=== PATIENT | female | born 1995 | race Caucasian/White ===

== ENCOUNTER 2017-04-06 02:40 | Inpatient (IN) | payer BC ==
[2017-04-06] MEDS ORDERED: Lidocaine 1% 50 ML MDV INJECT PRN (03:43)
[2017-04-06] MEDS ORDERED: Aluminum Hydroxide/Magnesium Hydroxide/Simethicone Susp 30 ML Cup PO PRN (03:43)
[2017-04-06] MEDS ORDERED: Ondansetron 4 MG/2 ML SDV IVPUSH PRN (03:43)
[2017-04-06] MEDS ORDERED: Nalbuphine 20 MG/1 ML Amp IVPUSH PRN (03:43)
[2017-04-06] MEDS ORDERED: Oxytocin/Lactated Ringers 10 UNIT/1,000 ML BAG IV SCH ×2 (03:45→09:15)
[2017-04-06] MEDS ORDERED: Ampicillin 2 GM in Sodium Chloride 0.9% 100 ML IV ONE (04:00)
[2017-04-06] MEDS ORDERED: Sodium Chloride 0.9% 200 ML ONE (04:06)
[2017-04-06] MEDS: Lactated Ringers 1,000 ML IV SCH ×4 (04:24→12:17)
[2017-04-06] MEDS: Ampicillin 1 GM in Sodium Chloride 0.9% 100 ML IV SCH ×2 (07:49→11:53)
--- NOTE | 2017-04-06 11:27 | HP ---
DATE OF ADMISSION: 04/06/2017 ADMISSION DIAGNOSIS: 35 and 5/7th-week intrauterine , spontaneous rupture of membranes, early labor. HISTORY OF PRESENT ILLNESS: The patient is a 22-year-old, 4, para 2-0-1-2, white female, who was seen 2 days ago in clinic for a transfer visit. She was noted at that time to be 35 and 3/7th weeks gestational age with an MERVIN of 05/06/2017, as based upon her last menstrual period and an early ultrasound done in [place]. This places her at 35 and 5/7th weeks today upon admission. She reports spontaneous rupture of membranes, early in the a.m. of 04/06/2017. The amniotic fluid is clear. She has started in Labor and is fabien mildly at this time. The patient has gross rupture of membranes on evaluation. heart tones are reassuring. The patient was admitted for labor. 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 Last menstrual period was relatively certain and gives an MERVIN of 05/06/2017. This is supported by an ultrasound done in [place]. This is per patient's history as the patient has not transferred records to our clinic at this time. Her previous pregnancies include the followin. Female infant born on 11/17/2013, at 40 weeks' gestational age after 9 hours of labor - 7 pounds 14 ounces - normal spontaneous vaginal delivery - epidural - [place] - child's name is Frida. 2. Female infant born 11/03/2015, at 40 weeks' gestational age, after 16 hours of labor. 7 pounds 15 ounces - female - normal spontaneous vaginal delivery - epidural use - [place] - child's name is Regi. 3. Miscarriage on 05/24/2016, at 9 weeks gestational age. The patient is desiring epidural in labor and delivery. She has somewhat of a conflicting ultrasound evaluation history prior to transferring care to our clinic in that she had an ultrasound on 02/22/2017, which placed the baby's size at the 7th percentile and then was repeated on 03/02/2017, at which time, the growth was noted to be at the 47th percentile. At this time, the patient is concerned about intrauterine growth restriction and was scheduled for an ultrasound on the day that she was evaluated. She had a nonstress test 2 days ago, which was reactive. She has had one visit in our clinic on 04/04/2017, at which time, her fundal height was 33+ cm, which was somewhat lagging from her estimated gestational age. Laboratory testing in shows her blood to be O positive with a negative antibody screen. Chlamydia and GC were negative. Her last hemoglobin on 02/22/2017 was 11.8. Her diabetic screen test was 105. Group B strep screen has not been done. She plans to breastfeed. PAST MEDICAL HISTORY: 1. Normal spontaneous vaginal delivery x2. 2. Spontaneous x1. 3. Abnormal Pap smear in 2013. PAST SURGICAL HISTORY: Appendectomy. FAMILY HISTORY: Positive for a maternal grandfather with bladder cancer. No , anesthesia, bleeding, or blood clotting problems noted in the family. SOCIAL HISTORY: The patient is . is [place]. They live in [place], [place]. She does not use any significant amounts of alcohol, drugs, or tobacco. She does not work outside the home at the present time. REVIEW OF SYSTEMS: SKIN: Negative. CARDIOVASCULAR: No chest pain or exercise intolerance. RESPIRATORY: No shortness of breath or infectious symptoms. BREASTS: Changes associated with - the patient does plan to nursing. GI: Negative. : Changes consistent with . MUSCULOSKELETAL: No significant edema noted. NEUROLOGICAL: Normal. PHYSICAL EXAMINATION: VITAL SIGNS: The patient's last evaluation in clinic showed the blood pressure to be 105/58. Weight was 108.2 pounds. heart rate 139. Weight gain in has been approximately 10 pounds. GENERAL: The patient is very slender, slightly-built white female, in no acute distress. She is somewhat anxious about the baby. SKIN: Warm and dry without lesions. LUNGS: Clear with good breath sounds in all lung peña. CARDIOVASCULAR: Shows regular rate and rhythm without murmurs. LUNGS: Clear with good breath sounds in all lung peña. BREASTS: Deferred. ABDOMEN: Protuberant with . Last fundal height in clinic at 33+ cm. Baby in a vertex presentation. CERVIX: Per nursing evaluation is 1 cm, 70% effaced, -3, gross spontaneous rupture of membranes, cephalic presentation. EXTREMITIES AND NEUROLOGICAL: Grossly within normal limits. ASSESSMENT: 1. 35 and 03/11-week intrauterine with spontaneous rupture of membranes with resultant clear fluid. Now in early labor. 2. Group B strep status unknown. 3. The patient's plan is to breast feed. 4. Epidural in labor and delivery. 5. Conflicting data relative to the growth of the baby based on 2 ultrasounds done in February. Situation difficult to assess because of the patient's very slender-built body stature. PLAN: 1. Anticipate normal spontaneous vaginal delivery. Monitor heart tones closely. 2. Alert Pediatrics of nature of this and delivery. 3. Group B strep prophylaxis as status is unknown. 4. Epidural p.r.n. for pain in labor and delivery. 5. Encourage nursing. MMODAL /[id number]
--- NOTE | 2017-04-06 11:32 | PCM.PREANE ---
Preanesthetic Assessment - Procedure Proposed Procedure: KHUSHI - Anesthesia/Transfusion/Family Hx Anesthesia History: Prior Anesthesia Without Reaction Family History of Anesthesia Reaction: No Transfusion History: No Prior Transfusion(s) - Review of Systems General: No Symptoms Pulmonary: No Symptoms Cardiovascular: No Symptoms Gastrointestinal: No symptoms Neurological: Headache Other: Reports: Sinus Problem (Congested this ) - Physical Assessment NPO Status Date: 04/06/17 NPO Status Time: 10:00 Respiratory Rate: 18 Vital Signs: Last Vital Signs Temp 37.1 C 04/06/17 04:30 Pulse 79 04/06/17 04:30 Resp 18 04/06/17 04:30 BP 118/74 04/06/17 04:30 Pulse Ox Height: 1.63 m Weight: 50.037 kg ASA Class: 1 Mental Status: Alert & Oriented x3 Airway Class: Mallampati = 3 Dentition: Reports: Broken Tooth/Teeth, Missing Tooth/Teeth (Both upper and lower) Thyro-Mental Finger Breadths: 3 Mouth Opening Finger Breadths: 3 ROM/Head Extension: Full Lungs: Clear to auscultation, Normal respiratory effort Cardiovascular: Regular Rate, Regular Rhythm, No Murmurs - Lab Values: Laboratory Last Values WBC 11.37 K/mm3 (3.98-10.04) H 04/06/17 04:15 RBC 3.58 M/mm3 (3.98-5.22) L 04/06/17 04:15 Hgb 11.0 gm/L (11.2-15.7) L 04/06/17 04:15 Hct 33.0 % (34.1-44.9) L 04/06/17 04:15 MCV 92.2 fl (79.4-94.8) 04/06/17 04:15 MCH 30.7 pg (25.6-32.2) 04/06/17 04:15 MCHC 33.3 g/dl (32.2-35.5) 04/06/17 04:15 RDW Std Deviation 45.9 fL (36.4-46.3) 04/06/17 04:15 Plt Count 291 K/mm3 (182-369) 04/06/17 04:15 MPV 10.9 fl (9.4-12.3) 04/06/17 04:15 Neut % (Auto) 72.9 % (34.0-71.1) H 04/06/17 04:15 Lymph % (Auto) 18.1 % (19.3-51.7) L 04/06/17 04:15 [place] % (Auto) 7.4 % (4.7-12.5) 04/06/17 04:15 Eos % (Auto) 1.1 (0.7-5.8) 04/06/17 04:15 Baso % (Auto) 0.2 % (0.1-1.2) 04/06/17 04:15 Neut # (Auto) 8.30 K/mm3 (1.56-6.13) H 04/06/17 04:15 Lymph # (Auto) 2.06 K/mm3 (1.18-3.74) 04/06/17 04:15 [place] # (Auto) 0.84 K/mm3 (0.24-0.36) H 04/06/17 04:15 Eos # (Auto) 0.12 K/mm3 (0.04-0.36) 04/06/17 04:15 Baso # (Auto) 0.02 K/mm3 (0.01-0.08) 04/06/17 04:15 - Allergies Allergies/Adverse Reactions: Allergies Allergy/AdvReac Type Severity Reaction Status Date / Time No Known Allergies Allergy Verified 04/06/17 03:30 - Acknowledgements Anesthesia Type Planned: Epidural Pt an Appropriate Candidate for the Planned Anesthesia: Yes Alternatives and Risks of Anesthesia Discussed w Pt/Guardian: Yes Pt/Guardian Understands and Agrees with Anesthesia Plan: Yes PreAnesthesia Questionnaire GUARDIAN FAMILY MEMBER History: Reports: : 4 Para: 2 - Past Surgical History GI Surgical History: Reports: Appendectomy - SUBSTANCE USE Smoking Status *Q: Never Smoker Tobacco Use Within Last Twelve Months: No Days Per Week of Alcohol Use: 0 Number of Drinks Per Day: 0 Total Drinks Per Week: 0 Recreational Drug Use History: No - HOME MEDS Home Medications: Home Meds . [No Known Home Meds] 04/06/17 [History] - CURRENT (IN HOUSE) MEDS Current Meds: Current Medications Al Hydroxide/Mg Hydroxide (Mag-Al Plus) 30 ml PO Q8H PRN PRN Reason: Heartburn Ampicillin Sodium 1 gm/ Sodium (Chloride) 100 mls @ 200 mls/hr IV Q4H MORGAN Last Admin: 04/06/17 07:49 Dose: 200 mls/hr Lactated Ringer's (Ringers, Lactated) 1,000 mls @ 100 mls/hr IV ASDIRECTED MORGAN Last Admin: 04/06/17 11:22 Dose: 250 mls/hr Oxytocin/Lactated Ringer's (Pitocin In Lr 10 Units/1,000 Ml) 10 unit in 1,000 mls @ 500 mls/hr IV ASDIRECTED MORGAN Oxytocin/Lactated Ringer's (Pitocin In Lr 10 Units/1,000 Ml) 10 unit in 1,000 mls @ 12 mls/hr IV TITRATE MORGAN; 2 MUNITS/MIN PRN Reason: Protocol Last Titration: 04/06/17 10:15 Dose: 4 munits/min, 24 mls/hr Lidocaine HCl (Xylocaine 1%) 50 ml INJECT ONETIME PRN PRN Reason: perineal pain Nalbuphine HCl (Nubain) 10 mg IVPUSH Q2H PRN PRN Reason: Pain (moderate 4-6) Ondansetron HCl (Zofran) 4 mg IVPUSH Q4H PRN PRN Reason: Nausea/Vomiting Discontinued Medications Ampicillin Sodium 2 gm/ Sodium (Chloride) 100 mls @ 200 mls/hr IV ONETIME ONE Stop: 04/06/17 04:29 Last Admin: 04/06/17 04:24 Dose: 200 mls/hr Sodium Chloride (Normal Saline) Confirm Administered Dose 200 mls @ as directed .ROUTE .STK-MED ONE Stop: 04/06/17 04:07 Last Admin: 04/06/17 04:38 Dose: Not Given
[2017-04-06] MEDS ORDERED: Bupivacaine/fentaNYL/NS 100 ML Bag EPIDUR SCH (11:45)
[2017-04-06] MEDS ORDERED: fentaNYL 100 MCG/2 ML SDV IVPUSH ONE (12:40)
--- NOTE | 2017-04-06 14:47 | PCM.SN ---
- Free Text/Narrative Note: Sammi is a 22-year-old 3 now para 01/03/2004 white female at 35-5/7 weeks gestational age who had spontaneous rupture membranes with resultant clear amniotic fluid early in the a.m. of 04/06/2017. She went into early mild labor shortly thereafter and was seen in labor and delivery where rupture membranes was confirmed. heart tones are within normal limits. Contractions slowed and Pitocin was given to augment labor. She went to 4+ centimeters and then quickly went to complete and delivered with 1 push. Baby delivered in a right occiput anterior position. The perineum was intact and there were no vaginal or vulvar lacerations. The baby was a male , 2150 g (4 lbs. 12 oz.) born at 1427 hours on 04/06/2017. He had Apgars of 9 and 9 and was 18 inches in length. Baby was placed on the mom's abdomen, the nose was bulb suctioned, cord was clamped x2 and cut by the father. Cord blood was obtained. The umbilical cord had 3 vessels. The placenta delivered at 1431 hours in a Schultze presentation. It appeared intact and complete. Estimated blood loss was 100 cc. Patient plans to nurse. Pitocin was administered after delivery of the baby to facilitate increase in uterine tone and decrease bleeding. Condition: Good
[2017-04-06] MEDS ORDERED: Benzocaine/Menthol 20%-0.5% Spray 56 GM Canister TOP PRN (14:50)
[2017-04-06] MEDS ORDERED: Docusate Sodium 100 MG Cap PO PRN (14:50)
[2017-04-06] MEDS ORDERED: Lanolin 100% Cream 7 GM Tube TOP PRN (14:50)
[2017-04-06] MEDS ORDERED: Witch Hazel Medicated Pads 100/Jar TOP PRN (14:50)
[2017-04-06] MEDS ORDERED: Acetaminophen 325 MG Tab PO PRN (14:50)
[2017-04-06] MEDS: Ibuprofen 600 MG Tab PO PRN ×2 (16:35→21:43)
[2017-04-06] MEDS ORDERED: Measles, Mumps & Rubella Vaccine 0.5 ML SDV SUBCUT ONE (18:00)
[2017-04-07] MEDS: Ibuprofen 600 MG Tab PO PRN ×5 (04:15→23:58)
--- NOTE | 2017-04-07 06:10 | PCM48HPAN ---
Post Anesthesia Note - EVALUATION WITHIN 48HRS OF ANESTHETIC Vital Signs in Normal Range: Yes Patient Participated in Evaluation: Yes Respiratory Function Stable: Yes Airway Patent: Yes Cardiovascular Function Stable: Yes Hydration Status Stable: Yes Pain Control Satisfactory: Yes Nausea and Vomiting Control Satisfactory: Yes Mental Status Recovered: Yes
--- NOTE | 2017-04-07 07:33 | PCM.SN ---
- Free Text/Narrative Note: The patient is doing well on post day 1. Minimal lochia, voiding well. Nursing without concerns. Patient is afebrile, vital signs stable. Uterus is just below the umbilicus, soft, nontender. Legs nontender. Assessment/plan: 35-5/7 week IUP-delivered. day one-doing well. Hemoglobin today. Possibly home tomorrow.
--- NOTE | 2017-04-08 05:57 | PCM.DCSUM1 ---
Discharge Summary - Hospital Course Free Text/Narrative:: Sammi is a 22-year-old 3 now para 01/03/2004 white female at 35-5/7 weeks gestational age who had spontaneous rupture membranes with resultant clear amniotic fluid early on the a.m. of 04/06/2017. She went into early mild labor shortly thereafter and was seen in labor and delivery where rupture membranes was confirmed. heart tones were within normal limits. Contractions slowed and Pitocin was given to augment labor. She went to 4+ centimeters and then quickly went to complete and delivered with 1 push. Baby delivered in a right occiput anterior position. The perineum was intact and there were no vaginal or vulvar lacerations. The baby was a male infant, 2150 g (4 lbs. 12 oz.) born at 1427 hours on 04/06/2017. He had Apgars of 9 and 9 and was 18 inches in length. Baby was placed on the mom's abdomen, the nose was bulb suctioned, cord was clamped x2 and cut by the father. Cord blood was obtained. The umbilical cord had 3 vessels. The placenta delivered at 1431 hours in a Schultze presentation. It appeared intact and complete. Estimated blood loss was 100 cc. Patient plans to nurse. Pitocin was administered after delivery of the baby to facilitate increase in uterine tone and decrease bleeding. the patient has done well. She's had minimal lochia, is voiding well , is ambulating without concerns and is nursing. She desires to be discharged. Followup CBC is okay to the period. - Discharge Data Discharge Date: 04/08/17 Discharge Disposition: Home, Self-Care 01 Condition: Good - Patient Instructions Diet: Regular Diet as Tolerated (Nursing diet was increased calcium and calories as directed) Activity: As Tolerated (No intercourse or tampons until bleeding) Driving: Do Not Drive (X2 days.) Showering/Bathing: May Shower (May take a bath) - Discharge Plan Home Medications: Home Meds Ibuprofen [IJD: Ibuprofen] 600 mg PO Q4H PRN #30 tablet 04/08/17 [Rx] Referrals: Cheng Jones MD [Primary Care Provider] - (Return to clinic-Dr. Jones-4-6 weeks-[facility].) - Discharge Summary/Plan Comment DC Time >30 min.: No Discharge Summary/Plan Comment: Discharge instructions: 1. Discharge home 2. Regular, high-fiber, nursing diet with increased calcium and calories is recommended 3. Routine instructions given concerning diet, activity and followup. 4. Medications per medication , discussed with and given to the patient. 5. Return to clinic-Dr. Jones-[facility]-4-6 weeks Diagnosis: 35-5/7 week intrauterine -delivered Condition: Good - Patient Data Vitals - Most Recent: Last Vital Signs Temp 36.8 C 04/08/17 03:13 Pulse 69 04/08/17 03:13 Resp 16 04/08/17 03:13 BP 94/48 L 04/08/17 03:13 Pulse Ox 93 L 04/08/17 03:13 Weight - Most Recent: 50.037 kg I&O - Last 24 hours: Intake & Output 04/07/17 04/07/17 04/08/17 14:59 22:59 06:59 Intake Total 240 Balance 240 Med Orders - Current: Current Medications Acetaminophen (Tylenol) 650 mg PO Q4H PRN PRN Reason: mild pain or fever Benzocaine/Menthol (Dermoplast Pain Relief [place]) 0 gm TOP ASDIRECTED PRN PRN Reason: Perineal Comfort Measure Last Admin: 04/06/17 16:21 Dose: 1 applic Docusate Sodium (Colace) 100 mg PO BID PRN PRN Reason: Constipation Emollient Ointment (Lansinoh Hpa) 0 gm TOP ASDIRECTED PRN PRN Reason: Sore Nipples Ibuprofen (Motrin) 600 mg PO Q4H PRN PRN Reason: Mild pain or fever Last Admin: 04/07/17 23:58 Dose: 600 mg Witch Azalea (Tucks) 1 pad TOP ASDIRECTED PRN PRN Reason: Hemorrhoid pain Last Admin: 04/06/17 16:22 Dose: 1 applic Discontinued Medications Al Hydroxide/Mg Hydroxide (Mag-Al Plus) 30 ml PO Q8H PRN PRN Reason: Heartburn Fentanyl (Sublimaze) 100 mcg IVPUSH ONETIME ONE Stop: 04/06/17 12:41 Last Admin: 04/06/17 12:20 Dose: 100 mcg Fentanyl/Bupivacaine HCl (Fentanyl/Bupivacaine/Ns 2 Mcg-0.125% 100 Ml) 100 ml EPIDUR ASDIRECTED MORGAN Last Admin: 04/06/17 12:20 Dose: 100 ml Ampicillin Sodium 2 gm/ Sodium (Chloride) 100 mls @ 200 mls/hr IV ONETIME ONE Stop: 04/06/17 04:29 Last Admin: 04/06/17 04:24 Dose: 200 mls/hr Ampicillin Sodium 1 gm/ Sodium (Chloride) 100 mls @ 200 mls/hr IV Q4H MORGAN Last Admin: 04/06/17 11:53 Dose: 200 mls/hr Lactated Ringer's (Ringers, Lactated) 1,000 mls @ 100 mls/hr IV ASDIRECTED MORGAN Last Admin: 04/06/17 12:17 Dose: 250 mls/hr Oxytocin/Lactated Ringer's (Pitocin In Lr 10 Units/1,000 Ml) 10 unit in 1,000 mls @ 500 mls/hr IV ASDIRECTED [facility] Sodium Chloride (Normal Saline) Confirm Administered Dose 200 mls @ as directed .ROUTE .STK-MED ONE Stop: 04/06/17 04:07 Last Admin: 04/06/17 04:38 Dose: Not Given Oxytocin/Lactated Ringer's (Pitocin In Lr 10 Units/1,000 Ml) 10 unit in 1,000 mls @ 12 mls/hr IV TITRATE MORGAN; 2 MUNITS/MIN PRN Reason: Protocol Last Titration: 04/06/17 13:34 Dose: 8 munits/min, 48 mls/hr Lidocaine HCl (Xylocaine 1%) 50 ml INJECT ONETIME PRN PRN Reason: perineal pain Measles/Mumps/Rubella Vaccine Live (M-M-R Ii Vaccine) 0.5 ml SUBCUT .ONCE ONE Stop: 04/06/17 18:01 Last Admin: 04/07/17 08:51 Dose: Not Given Nalbuphine HCl (Nubain) 10 mg IVPUSH Q2H PRN PRN Reason: Pain (moderate 4-6) Ondansetron HCl (Zofran) 4 mg IVPUSH Q4H PRN PRN Reason: Nausea/Vomiting *Q Meaningful Use (DIS) - VTE *Q VTE Criteria *Q: - Stroke *Q Stroke Criteria *Q: - AMI *Q AMI Criteria *Q:
[2017-04-08 09:52] VITALS: BP 100/50
== END 2017-04-08 11:45 | disposition home or self-care (01) | DRG 560 ==
LOC: JD.OBCHECK 02:40 → JD.OB 02:45 → JD.OBCHECK 03:55 → JD.OB 03:56 → OBSVTOIN 14:27
PROVIDERS: ADMIT Obstetrics & Gynecology; ATTEND Obstetrics & Gynecology
PROC: 10E0XZZ Delivery of Products of Conception, External Approach (ICD-10-PCS; principal; 2017-04-06)
PROC: 3E0R3CZ (ICD-10-PCS; 2017-04-06)
DX: O36.5930 Maternal care for other known or suspected poor fetal growth, third trimester, not applicable or unspecified (principal); Z3A.35 35 weeks gestation of pregnancy; Z37.0 Single live birth
CPT/HCPCS: 36415; 85025; 85027; 86762; A9270-GY; J0290; J2590; J3010; J7030; J7120

== ENCOUNTER 2017-05-06 23:26 | Emergency (ER) | payer BC ==
[2017-05-06 23:40] VITALS: BP 104/81
[2017-05-06] MEDS ORDERED: Sodium Chloride 0.9% 10 ML Syringe FLUSH PRN (23:58)
--- NOTE | 2017-05-07 01:51 | EDM.PDOC ---
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 She just had a baby about 4 weeks ago. There were no complications. This is her 3rd child. She had more bleeding today then she has all 4 weeks. She was passing clots and she used about 3 pad per hour for about 2 hours. She denies any pain. She did have chills earlier today. She has no abdominal pain, nausea or vomiting. She has no dysuria. She has no diarrhea. 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: - Past Surgical History GI Surgical History: Reports: Appendectomy Social & Family History - Family History Family Medical History: Noncontributory - Tobacco Use Smoking Status *Q: Never Smoker - Caffeine Use Caffeine Use: Reports: Soda - Alcohol Use Days Per Week of Alcohol Use: 0 Number of Drinks Per Day: 0 Total Drinks Per Week: 0 - Recreational Drug Use Recreational Drug Use: No ED ROS GENERAL - Review of Systems Review Of Systems: See Below Constitutional: Reports: No Symptoms HEENT: Reports: No Symptoms Respiratory: Reports: No Symptoms Cardiovascular: Reports: No Symptoms Endocrine: Reports: No Symptoms GI/Abdominal: Reports: No Symptoms : Reports: Other (Vaginal bleeding) ED EXAM, RENAL/ - Physical Exam Exam: See Below Exam Limited By: No Limitations General Appearance: Alert, No Apparent Distress Ears: Normal External Exam Nose: Normal Inspection Head: Atraumatic, Normocephalic Neck: Normal Inspection Respiratory/Chest: No Respiratory Distress, Lungs Clear, Normal Breath Sounds Cardiovascular: Regular Rate, Rhythm, No Edema, No Murmur GI/Abdominal: Soft, Non-Tender, No Organomegaly, No Mass, Other (I do not feel the uterus) (Female) Exam: Other (Mild vaginal bleeding with a small clot) Course - Vital Signs Last Recorded V/S: Last Vital Signs Temp 97.0 F 05/06/17 23:35 Pulse 61 05/06/17 23:35 Resp 14 05/06/17 23:35 BP 104/81 05/06/17 23:35 Pulse Ox 98 05/06/17 23:35 - Orders/Labs/Meds Orders: Active Orders 24 hr Category Date Time Status Pelvic Exam, Set Up [RC] ASDIRECTED Care 05/06/17 23:59 Active Peripheral IV Care [RC] . DIRECTED Care 05/06/17 23:58 Active ABO/RH TYPE [BBK] Stat Lab 05/06/17 23:53 Results PATIENT RETYPE [BBK] Stat Lab 05/06/17 23:53 Results Sodium Chloride 0.9% [Saline Flush] Med 05/06/17 23:58 Active 10 ml FLUSH ASDIRECTED PRN Peripheral IV Insertion Adult [OM.PC] Stat Oth 05/06/17 23:58 Ordered Medication Orders Sodium Chloride (Saline Flush) 10 ml FLUSH ASDIRECTED PRN PRN Reason: Keep Vein Open Last Admin: 05/07/17 00:06 Dose: 10 ml Labs: Laboratory Tests 05/06/17 05/06/17 05/06/17 Range/Units 23:53 23:53 23:53 WBC 6.93 (3.98-10.04) K/mm3 RBC 3.92 L (3.98-5.22) M/mm3 Hgb 12.3 (11.2-15.7) gm/L Hct 36.1 (34.1-44.9) % MCV 92.1 (79.4-94.8) fl MCH 31.4 (25.6-32.2) pg MCHC 34.1 (32.2-35.5) g/dl RDW Std Deviation 41.5 (36.4-46.3) fL Plt Count 231 (182-369) K/mm3 MPV 10.5 (9.4-12.3) fl Neut % (Auto) 46.5 (34.0-71.1) % Lymph % (Auto) 41.4 (19.3-51.7) % [place] % (Auto) 8.4 (4.7-12.5) % Eos % (Auto) 3.2 (0.7-5.8) Baso % (Auto) 0.4 (0.1-1.2) % Neut # (Auto) 3.22 (1.56-6.13) K/mm3 Lymph # (Auto) 2.87 (1.18-3.74) K/mm3 Dare # (Auto) 0.58 H (0.24-0.36) K/mm3 Eos # (Auto) 0.22 (0.04-0.36) K/mm3 Baso # (Auto) 0.03 (0.01-0.08) K/mm3 Sodium 139 (136-145) mEq/L Potassium 3.6 (3.5-5.1) mEq/L Chloride 105 (98-107) mEq/L Carbon Dioxide 29 (21-32) mEq/L Anion Gap 8.6 (5-15) BUN 10 (7-18) mg/dL Creatinine 0.8 (0.55-1.02) mg/dL Est Cr Clr Drug Dosing 72.83 mL/min Estimated GFR (MDRD) > 60 (>60) mL/min BUN/Creatinine Ratio 12.5 L (14-18) Glucose 107 H (74-106) mg/dL Calcium 9.2 (8.5-10.1) mg/dL Total Bilirubin 0.5 (0.2-1.0) mg/dL AST 19 (15-37) U/L ALT 27 (14-59) U/L Alkaline Phosphatase 75 (46-116) U/L Total Protein 8.6 H (6.4-8.2) g/dl Albumin 4.1 (3.4-5.0) g/dl Globulin 4.5 gm/dL Albumin/Globulin Ratio 0.9 L (1-2) HCG, Quant 2.0 mIU/mL Blood Type O POSITIVE Meds: Medications Generic Name Dose Route Start Last Admin Trade Name Freq PRN Reason Stop Dose Admin Sodium Chloride 10 ml 05/06/17 23:58 05/07/17 00:06 Saline Flush FLUSH 10 ml ASDIRECTED PRN Administration Keep Vein Open - Re-Assessments/Exams Free Text/Narrative Re-Assessment/Exam: 05/07/17 01:50 I ordered an IV saline lock and labs. Her CBC and CMP look good. Her HCG is negative. By the time I did my pelvic exam the bleeding had slowed down. I will discharge her home and have her follow up with Dr Jones. Departure - Departure Time of Disposition: 13:55 Disposition: Home, Self-Care 01 Condition: Good Clinical Impression: Vaginal bleeding, abnormal - Discharge Information Referrals: Cheng Jones MD [Primary Care Provider] - (Call his office tomorrow) Forms: ED Department Discharge Additional Instructions: Drink plenty of fluids. Please return if the bleeding increases to over 1 pad per hour for more then [address] Jones's office in the morning and let them know what was going on. - My Orders Last 24 Hours: My Active Orders 05/06/17 23:53 ABO/RH TYPE [BBK] Stat PATIENT RETYPE [BBK] Stat 05/06/17 23:58 Peripheral IV Care [RC] . DIRECTED Sodium Chloride 0.9% [Saline Flush] 10 ml FLUSH ASDIRECTED PRN Peripheral IV Insertion Adult [OM.PC] Stat 05/06/17 23:59 Pelvic Exam, Set Up [RC] ASDIRECTED - Assessment/Plan Last 24 Hours: My Active Orders 05/06/17 23:53 ABO/RH TYPE [BBK] Stat PATIENT RETYPE [BBK] Stat 05/06/17 23:58 Peripheral IV Care [RC] . DIRECTED Sodium Chloride 0.9% [Saline Flush] 10 ml FLUSH ASDIRECTED PRN Peripheral IV Insertion Adult [OM.PC] Stat 05/06/17 23:59 Pelvic Exam, Set Up [RC] ASDIRECTED
== END 2017-05-07 01:58 | disposition home or self-care (01) ==
LOC: JD.ED 23:26
DX: O72.1 Other immediate postpartum hemorrhage (principal); Z90.49 Acquired absence of other specified parts of digestive tract
CPT/HCPCS: 36415; 80053; 84702; 85025; 86900; 86901; 99284; J7050; 99283

== ENCOUNTER 2019-08-07 06:43 | Inpatient (IN) | payer BC ==
[~2019-08-07 06:43] MED LIST: Bupivacaine 0.25% 10 ML SDV ONE
[2019-08-07] MEDS ORDERED: Nalbuphine 10 MG/1 ML Vial IVPUSH PRN (07:42)
[2019-08-07] MEDS ORDERED: Ondansetron 4 MG/2 ML SDV IVPUSH PRN (07:42)
[2019-08-07] MEDS ORDERED: Sodium Chloride 0.9% 10 ML Syringe FLUSH PRN (07:42)
[2019-08-07] MEDS ORDERED: Oxytocin/Lactated Ringers 10 UNIT/1,000 ML BAG IV SCH ×2 (07:45)
[2019-08-07] MEDS: Lactated Ringers 1,000 ML IV SCH ×3 (09:19→10:19)
[2019-08-07] MEDS ORDERED: diphenhydrAMINE 50 MG/ML SDV IVPUSH PRN (09:33)
[2019-08-07] MEDS ORDERED: Bupivacaine/fentaNYL/NS 100 ML Bag EPIDUR PRN (09:33)
[2019-08-07] MEDS ORDERED: fentaNYL 100 MCG/2 ML SDV EPIDUR PRN (09:33)
[2019-08-07] MEDS ORDERED: ePHEDrine 50 MG/ML SDV IVPUSH PRN (09:33)
--- NOTE | 2019-08-07 10:02 | PCM.PREANE ---
Preanesthetic Assessment - Procedure Proposed Procedure: tom - Anesthesia/Transfusion/Family Hx Anesthesia History: Prior Anesthesia Without Reaction Family History of Anesthesia Reaction: No Transfusion History: No Prior Transfusion(s) - Review of Systems General: No Symptoms Pulmonary: No Symptoms Cardiovascular: No Symptoms Gastrointestinal: No Symptoms Neurological: No Symptoms Other: Reports: None - Physical Assessment Vital Signs: Last Vital Signs Temp 97.7 F 08/07/19 07:43 Pulse 76 08/07/19 07:43 Resp 16 08/07/19 07:43 BP 112/66 08/07/19 07:43 Pulse Ox 99 08/07/19 07:43 Height: 5 ft 4 in Weight: 52.617 kg ASA Class: 2 Mental Status: Alert & Oriented x3 Airway Class: Mallampati = 1 Dentition: Reports: Normal Dentition Thyro-Mental Finger Breadths: 3 Mouth Opening Finger Breadths: 3 ROM/Head Extension: Full Lungs: Clear to Auscultation, Normal Respiratory Effort Cardiovascular: Regular Rate, Regular Rhythm - Lab Values: Laboratory Last Values WBC 8.21 K/mm3 (3.98-10.04) 08/07/19 07:56 RBC 3.48 M/mm3 (3.98-5.22) L 08/07/19 07:56 Hgb 11.2 gm/dl (11.2-15.7) 08/07/19 07:56 Hct 32.7 % (34.1-44.9) L 08/07/19 07:56 MCV 94.0 fl (79.4-94.8) 08/07/19 07:56 MCH 32.2 pg (25.6-32.2) 08/07/19 07:56 MCHC 34.3 g/dl (32.2-35.5) 08/07/19 07:56 RDW Std Deviation 48.0 fL (36.4-46.3) H 08/07/19 07:56 Plt Count 177 K/mm3 (182-369) L 08/07/19 07:56 MPV 11.8 fl (9.4-12.3) 08/07/19 07:56 - Allergies Allergies/Adverse Reactions: Allergies Allergy/AdvReac Type Severity Reaction Status Date / Time No Known Allergies Allergy Verified 08/07/19 09:03 - Blood Blood Available: No - Acknowledgements Anesthesia Type Planned: Epidural Pt an Appropriate Candidate for the Planned Anesthesia: Yes Alternatives and Risks of Anesthesia Discussed w Pt/Guardian: Yes Pt/Guardian Understands and Agrees with Anesthesia Plan: Yes PreAnesthesia Questionnaire Cardiovascular History: Reports: None Respiratory History: Reports: None REFLEXOLOGIST History: Reports: : 4 (39 weeks) Para: 3 - Past Surgical History GI Surgical History: Reports: Appendectomy - SUBSTANCE USE Smoking Status *Q: Former Smoker Tobacco Use Within Last Twelve Months: No Second Hand Smoke Exposure: No Days Per Week of Alcohol Use: 0 Recreational Drug Use History: No - HOME MEDS Home Medications: Home Meds AUU770/Iron Fumarate/FA/DSS [ 19 Tablet] 1 each PO DAILY 08/07/19 [ History] - CURRENT (IN HOUSE) MEDS Current Meds: Current Medications Diphenhydramine HCl (Benadryl) 25 mg IVPUSH Q6H PRN PRN Reason: pruritis Ephedrine Sulfate (Ephedrine Sulfate) 5 mg IVPUSH ASDIRECTED PRN PRN Reason: Hypotension Fentanyl (Sublimaze) 100 mcg EPIDUR Q3H PRN PRN Reason: Pain Last Admin: 08/07/19 09:54 Dose: 100 mcg Fentanyl/Bupivacaine HCl (Fentanyl/Bupivacaine/Ns 2 Mcg-0.125% 100 Ml) 100 ml EPIDUR ASDIRECTED PRN PRN Reason: Pain Last Admin: 08/07/19 09:52 Dose: 100 ml Lactated Ringer's (Ringers, Lactated) 1,000 mls @ 100 mls/hr IV ASDIRECTED MORGAN Last Admin: 08/07/19 09:37 Dose: 100 mls/hr Oxytocin/Lactated Ringer's (Pitocin In Lr 10 Units/1,000 Ml) 10 unit in 1,000 mls @ 12 mls/hr IV TITRATE MORGAN; Protocol Oxytocin/Lactated Ringer's (Pitocin In Lr 10 Units/1,000 Ml) 10 unit in 1,000 mls @ 500 mls/hr IV .CONTINUOUS MORGAN Nalbuphine HCl (Nubain) 10 mg IVPUSH Q2H PRN PRN Reason: Pain Ondansetron HCl (Zofran) 4 mg IVPUSH Q4H PRN PRN Reason: Nausea/Vomiting Sodium Chloride (Saline Flush) 10 ml FLUSH ASDIRECTED PRN PRN Reason: Keep Vein Open
[2019-08-07] MEDS ORDERED: Acetaminophen 325 MG Tab PO PRN (14:14)
[2019-08-07] MEDS ORDERED: Lanolin 100% Cream 7 GM Tube TOP PRN (14:14)
[2019-08-07] MEDS ORDERED: Witch Hazel Medicated Pads 40/Jar TOP PRN (14:14)
[2019-08-07] MEDS ORDERED: Docusate Sodium 100 MG Cap PO PRN (14:14)
[2019-08-07] MEDS ORDERED: Benzocaine/Menthol 20%-0.5% Spray 56 GM Canister TOP PRN (14:14)
[2019-08-07] MEDS: Ibuprofen 600 MG Tab PO PRN ×2 (14:24→20:25)
--- NOTE | 2019-08-07 14:46 | PCM48HPAN ---
Post Anesthesia Note - EVALUATION WITHIN 48HRS OF ANESTHETIC Vital Signs in Normal Range: Yes Patient Participated in Evaluation: Yes Respiratory Function Stable: Yes Airway Patent: Yes Cardiovascular Function Stable: Yes Hydration Status Stable: Yes Pain Control Satisfactory: Yes Nausea and Vomiting Control Satisfactory: Yes Mental Status Recovered: Yes Vital Signs: Last Vital Signs Temp 97.7 F 08/07/19 07:43 Pulse 52 L 08/07/19 12:24 Resp 16 08/07/19 07:43 BP 108/68 08/07/19 12:24 Pulse Ox 100 08/07/19 12:24
[2019-08-08] MEDS: Ibuprofen 600 MG Tab PO PRN ×2 (02:47→09:01)
--- NOTE | 2019-08-08 05:52 | PCM.LDHP ---
L&D History of Present Illness - General Date of Service: 08/07/19 Admit Problem/Dx: Admission Diagnosis/Problem Admission Diagnosis/Problem 08/08/19 05:40 Sammi is a 24-year-old 4 para 2/11/07 white female was admitted on 08/07/2019 at 39-0/7 weeks gestational age with an MERVIN of 08/14/2019 for an elective induction of labor. Source of Information: Patient History Limitations: Reports: No Limitations - History of Present Illness Introduction:: Sammi is a 24-year-old 5 para 2112 white female was admitted on 2018 at 39-0/7 weeks gestational age with an MERVIN of 08/14/2019 for an elective induction of labor. The procedure of induction of labor, risks, benefits, alternatives of care including allowing for natural onset of labor are all discussed with patient. She appears to understand and wishes to proceed. STRAW BALER history: Patient is a 5 para 2112 upon admission. Her MERVIN is 08/2019 is based upon a certain last menstrual periods starting 11/07/2018 supported by 2 ultrasounds done on 01/22/2019 and 03/27/2019. Last menstrual period was definite. Her cycles come on a monthly basis to every 32 days. Menarche age 13. Patient's last menstrual cycle was not in association with any control pill use. Her previous menstrual close the followin. Female born 11/17/2014 at 40 weeks gestational age after 9 hours labor7 lbs. 14 oz.NSVDused an epidural [facility]. Female infant born 11/03/2016 at 40 weeks gestational age16 hours of labor7 lbs. 15 oz.NSVDepidural used in [facility] Reg[facility]. Miscarriage on 05/24/2016-spontaneous passage 4. Male born 04/06/201835-5/7 weeks gestational age4 lbs. 12 oz.- epidural used in [facility]- complicated by white female was admitted on 08/07/2019 at 39-0/7 weeks gestational age with an MERVIN of 08/14/2019 for an elective induction of labor. course: Patient was initially seen at 10-6/7 weeks gestational age on . Ultrasound done at that time was consistent with her LMP dating. Patient was seen on a regular basis throughout the . Her weight gain was from 93.5 pounds up to 117.8 pounds. Her fundal height growth was appropriate. Patient desired epidural in labor delivery. Her group B strep screen was negative. She plans to breast-feed. She is on vitamins throughout the course. Laboratory testing in : Blood is O+ with a negative amylase screen Hemoglobin was 12.0 g/dL at first visit and platelets were 223,000. She is rubella immune. RPR is nonreactive. Urine culture was negative. Hepatitis B surface antigen and HIV assays were both negative as were her chlamydia and gonorrhea tests. Second trimester labs showed hemoglobin of 11.7 g /dL. Platelets were 194,000. RPR done on 07/14/2019 was negative as was group B strep screen. Allergies: None Medications: vitamins 1 daily Past medical history: 1. Normal spontaneous vaginal delivery 3 2. Miscarriage 1 3. Abnormal Pap smear. Family history: Mother is secondary to pneumonia father is alive and well. Internal grandfather had bladder cancer. Patient does not have any significant family history related to , miscarriage, bleeding, blood clotting, anesthesia or asthma abnormalities. Social history: Patient is . is Espinoza. They live in [place], [place]. She is a [id number] mom. She does not use any significant amounts of alcohol, drugs or tobacco. Review of systems: In general patient has no complaints. Baby has been active. Some contractions noted on the a.m. of admission. These are about every 8 minutes apart. Skin: Negative Lungs: No infectious symptoms or shortness of breath Cardiovascular: No chest pain or exercise intolerance Breasts: Changes associated with . Patient plans to breast-feed.. GI: Negative : Changes associated with . Musculoskeletal: Negative Neurological: Negative In general the patient is well-developed, well-nourished, slight of build pleasant female of stated age in no acute distress. Skin is warm dry without lesions. HEENT, neck and back within normal limits. Lungs are clear with good breath sounds in all lung peña. Cardiovascular exam shows regular and rhythm without murmurs. Breast exam is deferred having been done at first visit found to be normal and is not repeated at this time. Patient does plan to breast-feed. Abdomen is gravid with fundal height consistent with 35-1/2 weeks gestational age. Baby in vertex presentation. Genital exam per digital exam on last evaluation in clinic was declined. On evaluation in labor and delivery cervix was 4 cm dilated, approximately 80-90% effaced, very soft, mid position, spell presentation, bulging bag of block which was ruptured resulting in clear amniotic fluid Extremities and neurological exam are grossly within normal limits. Pain Score: 1 - Related Data Allergies/Adverse Reactions: Allergies Allergy/AdvReac Type Severity Reaction Status Date / Time No Known Allergies Allergy Verified 08/07/19 09:03 Home Medications: Home Meds [id number]/Iron Fumarate/FA/DSS [ 19 Tablet] 1 each PO DAILY 08/07/19 [ History] Past Medical History Cardiovascular History: Reports: None Respiratory History: Reports: None STRAW BALER History: Reports: - Past Surgical History GI Surgical History: Reports: Appendectomy Social & Family History - Family History Family Medical History: Noncontributory - Tobacco Use Smoking Status *Q: Former Smoker Second Hand Smoke Exposure: No - Caffeine Use Caffeine Use: Reports: Coffee, Energy Drinks, Soda - Alcohol Use Days Per Week of Alcohol Use: 0 - Recreational Drug Use Recreational Drug Use: No H&P Review of Systems - Review of Systems: Review Of Systems: See Below L&D Exam - Exam Exam: See Below - Vital Signs Vital Signs: Last Vital Signs Temp 36.7 C 08/07/19 19:44 Pulse 62 08/08/19 03:53 Resp 14 08/08/19 03:53 BP 96/50 L 08/08/19 03:53 Pulse Ox 98 08/08/19 03:53 Weight: 52.617 kg - Patient Data Lab Results Last 24 hrs: Laboratory Results - last 24 hr 08/07/19 08/07/19 Range/Units 07:56 07:56 WBC 8.21 (3.98-10.04) K/mm3 RBC 3.48 L (3.98-5.22) M/mm3 Hgb 11.2 (11.2-15.7) gm/dl Hct 32.7 L (34.1-44.9) % MCV 94.0 (79.4-94.8) fl MCH 32.2 (25.6-32.2) pg MCHC 34.3 (32.2-35.5) g/dl RDW Std Deviation 48.0 H (36.4-46.3) fL Plt Count 177 L (182-369) K/mm3 MPV 11.8 (9.4-12.3) fl RPR Non-reactive (NONREACTIVE) Result Diagrams: 08/07/19 07:56 Problem List Initiated/Reviewed/Updated: Yes Orders Last 24hrs: Active Orders 24 hr Category Date Time Status Activity as Tolerated [RC] PER UNIT ROUTINE Care 08/07/19 14:14 Active Heart Tones [RC] ASDIRECTED Care 08/07/19 07:43 Inactive Vital Signs [RC] 03,09,15,21 Care 08/07/19 14:14 Active Regular Diet [DIET] Diet 08/07/19 Lunch Active Acetaminophen [Tylenol] Med 08/07/19 14:14 Active 650 mg PO Q4H PRN Benzocaine/Menthol [Dermoplast Pain Relief [place]] Med 08/07/19 14:14 Active See Dose Instructions TOP ASDIRECTED PRN Docusate Sodium [Colace] Med 08/07/19 14:14 Active 100 mg PO BID PRN Ibuprofen [Motrin] Med 08/07/19 14:14 Active 600 mg PO Q4H PRN Lanolin [Lansinoh HPA] Med 08/07/19 14:14 Active See Dose Instructions TOP ASDIRECTED PRN Vit with Ca/FA/Iron [ Plus Iron] Med 08/08/19 09:00 Active 1 each PO DAILY Witch Azalea [Tucks] Med 08/07/19 14:14 Active 1 pad TOP ASDIRECTED PRN Assess Lochia [WOMSER] Per Unit Routine Oth 08/07/19 14:14 Ordered Assess Uterine Involution [WOMSER] Per Unit Routine Oth 08/07/19 14:14 Ordered Breast Pump [WOMSER] Per Unit Routine Oth 08/07/19 14:14 Ordered Heat Therapy [OM.PC] PRN Oth 08/07/19 14:15 Ordered Heat Therapy [OM.PC] PRN Oth 08/08/19 14:15 Ordered Ice Therapy [OM.PC] Per Unit Routine Oth 08/07/19 14:14 Ordered Medication Administration Instruction [OM.PC] Routine Oth 08/07/19 14:14 Ordered Perineal Care [OM.PC] Per Unit Routine Oth 08/07/19 14:14 Ordered Sitz Bath [OM.PC] Per Unit Routine Oth 08/07/19 14:14 Ordered Resuscitation Status Routine Resus Stat 08/07/19 07:42 Ordered Medication Orders Acetaminophen (Tylenol) 650 mg PO Q4H PRN PRN Reason: mild pain or fever Benzocaine/Menthol (Dermoplast Pain Relief [place]) 0 gm TOP ASDIRECTED PRN PRN Reason: Perineal Comfort Measure Docusate Sodium (Colace) 100 mg PO BID PRN PRN Reason: Constipation Emollient Ointment (Lansinoh Hpa) 0 gm TOP ASDIRECTED PRN PRN Reason: Sore Nipples Ibuprofen (Motrin) 600 mg PO Q4H PRN PRN Reason: Mild pain or fever Last Admin: 08/08/19 02:47 Dose: 600 mg Admin: 08/07/19 20:25 Dose: 600 mg Admin: 08/07/19 14:24 Dose: 600 mg Prenat Multivit/Hydrate Control Tender/Iron/Folic Ac ( Plus Iron) 1 each PO DAILY MORGAN Sayra Tristan (Tucks) 1 pad TOP ASDIRECTED PRN PRN Reason: Pain Assessment/Plan Comment:: 1. Sammi is a 24-year-old 4 para 2/11/07 white female was admitted on 08/07/2019 at 39-0/7 weeks gestational age with an MERVIN of 08/14/2019 for an elective induction of labor. 2. Group B strep screen negative 3. Patient plans to breast-feed 4. RPR nonreactive. 5. MMR shows rubella immune status 6. She desires epidural in labor and delivery Plan: 1. Artificial rupture membranes induction with Pitocin augmentation as necessary 2. Routine labor care 3. Support breast-feeding decision 5. Epidural when necessary for pain control in labor 6. RPR and CBC upon admission
--- NOTE | 2019-08-08 05:55 | PCM.SN ---
- Free Text/Narrative Note: Delivery note: Sammi is a 24-year-old 4 para 2/11/07 white female was admitted on 08/07/2019 at 39-0/7 weeks gestational age with an MERVIN of 08/14/2019 for an elective induction of labor. She underwent artificial rupture membranes induction of labor. She progressed rapidly to complete cervical dilation and at 1037 on 08/07/2019 she delivered a viable, andrade, female with Apgars of 8 and 9, weight of 3050 g (6 pounds 11.6 ounces), a length of 19.0 inches in a left occiput anterior position. She delivered over an intact perineum.The baby was placed on mom's abdomen. Pitocin was started at 500 mL an hour to facilitate increased uterine tone and decrease likelihood of bleeding. The cord was allowed to pulsate times approximately 1-2 minutes then was clamped 2 and cut. 3 vessels were noted in the umbilical cord. Cord blood was obtained. Perineum was found to be intact. No suturing was necessary. The placenta delivered in a Smart presentation, appeared intact and complete and was discarded per patient desire. Patient plans to breast-feed. Estimated blood loss was 100 mL. Condition: Good
--- NOTE | 2019-08-08 06:16 | PCM.DCSUM1 ---
Discharge Summary - Hospital Course Free Text/Narrative:: Sammi is a 24-year-old 4 para 2/11/07 white female was admitted on 08/07/2019 at 39-0/7 weeks gestational age with an MERVIN of 08/14/2019 for an elective induction of labor. She underwent artificial rupture membranes induction of labor. She progressed rapidly to complete cervical dilation and at 1037 on 08/07/2019 she delivered a viable, andrade, female infant with Apgars of 8 and 9, weight of 3050 g (6 pounds 11.6 ounces), a length of 19.0 inches in a left occiput anterior position. She delivered over an intact perineum.The baby was placed on mom's abdomen. Pitocin was started at 500 mL an hour to facilitate increased uterine tone and decrease likelihood of bleeding. The cord was allowed to pulsate times approximately 1-2 minutes then was clamped 2 and cut. 3 vessels were noted in the umbilical cord. Cord blood was obtained. Perineum was found to be intact. No suturing was necessary. The placenta delivered in a Smart presentation, appeared intact and complete and was discarded per patient desire. Patient plans to breast-feed. Estimated blood loss was 100 mL. patient is doing well. She is nursing without problems, has minimal lochia and is voiding without concerns. She is desiring discharge home today. Condition: Good Diagnosis: Stroke: No - Discharge Data Discharge Date: 08/08/19 Discharge Disposition: Home, Self-Care 01 Condition: Good - Referral to Home Health Primary Care Physician: Cheng Jones MD - Patient Instructions Diet: Regular Diet as Tolerated (Nursing diet with increase calories and calcium is recommended) Activity: As Tolerated (No intercourse or tampons until bleeding resolves) Driving: May Drive Today Showering/Bathing: May Shower (May take a bath) Notify Provider of: Fever, Increased Pain, Swelling and Redness, Nausea and/or Vomiting - Discharge Plan Home Medications: Home Meds [id number]/Iron Fumarate/FA/DSS [ 19 Tablet] 1 each PO DAILY 08/07/19 [ History] Acetaminophen [Tylenol] 650 mg PO Q4H PRN tablet 08/08/19 [Rx] Ibuprofen [Motrin] 600 mg PO Q4H PRN tablet 08/08/19 [Rx] Referrals: Cheng Jones MD [Primary Care Provider] - - Discharge Summary/Plan Comment DC Time >30 min.: No Discharge Summary/Plan Comment: Discharge instructions: 1. Discharge home 2. Diet, activity and follow-up discussed with patient. Recommend nursing diet with increased calories and calcium. 3. Precautions given concern increased pain, bleeding, temperature, signs/ symptoms of DVT/PE. 4. Medications per home medication was printed, discussed with and given to the patient. 5. Return to clinic-[facility]. Jones[facility] in 2 weeks. Diagnosis: Term -delivered Condition: Good - Patient Data Vitals - Most Recent: Last Vital Signs Temp 36.7 C 08/07/19 19:44 Pulse 62 08/08/19 03:53 Resp 14 08/08/19 03:53 BP 96/50 L 08/08/19 03:53 Pulse Ox 98 08/08/19 03:53 Weight - Most Recent: 52.617 kg I&O - Last 24 hours: Intake & Output 08/07/19 08/07/19 08/08/19 14:59 22:59 06:59 Intake Total 3440 Balance 3440 Lab Results - Last 24 hrs: Laboratory Results - last 24 hr 08/07/19 08/07/19 Range/Units 07:56 07:56 WBC 8.21 (3.98-10.04) K/mm3 RBC 3.48 L (3.98-5.22) M/mm3 Hgb 11.2 (11.2-15.7) gm/dl Hct 32.7 L (34.1-44.9) % MCV 94.0 (79.4-94.8) fl MCH 32.2 (25.6-32.2) pg MCHC 34.3 (32.2-35.5) g/dl RDW Std Deviation 48.0 H (36.4-46.3) fL Plt Count 177 L (182-369) K/mm3 MPV 11.8 (9.4-12.3) fl RPR Non-reactive (NONREACTIVE) Med Orders - Current: Current Medications Acetaminophen (Tylenol) 650 mg PO Q4H PRN PRN Reason: mild pain or fever Benzocaine/Menthol (Dermoplast Pain Relief [place]) 0 gm TOP ASDIRECTED PRN PRN Reason: Perineal Comfort Measure Docusate Sodium (Colace) 100 mg PO BID PRN PRN Reason: Constipation Emollient Ointment (Lansinoh Hpa) 0 gm TOP ASDIRECTED PRN PRN Reason: Sore Nipples Ibuprofen (Motrin) 600 mg PO Q4H PRN PRN Reason: Mild pain or fever Last Admin: 08/08/19 02:47 Dose: 600 mg Prenat Multivit/[place]/Iron/Folic Ac ( Plus Iron) 1 each PO DAILY [facility] Sayra Tristan (Tucks) 1 pad TOP ASDIRECTED PRN PRN Reason: Pain Discontinued Medications Diphenhydramine HCl (Benadryl) 25 mg IVPUSH Q6H PRN PRN Reason: pruritis Ephedrine Sulfate (Ephedrine Sulfate) 5 mg IVPUSH ASDIRECTED PRN PRN Reason: Hypotension Fentanyl (Sublimaze) 100 mcg EPIDUR Q3H PRN PRN Reason: Pain Last Admin: 08/07/19 09:54 Dose: 100 mcg Fentanyl/Bupivacaine HCl (Fentanyl/Bupivacaine/Ns 2 Mcg-0.125% 100 Ml) 100 ml EPIDUR ASDIRECTED PRN PRN Reason: Pain Last Admin: 08/07/19 09:52 Dose: 100 ml Lactated Ringer's (Ringers, Lactated) 1,000 mls @ 100 mls/hr IV ASDIRECTED MORGAN Last Admin: 08/07/19 10:19 Dose: 100 mls/hr Oxytocin/Lactated Ringer's (Pitocin In Lr 10 Units/1,000 Ml) 10 unit in 1,000 mls @ 12 mls/hr IV TITRATE MORGAN; Protocol Oxytocin/Lactated Ringer's (Pitocin In Lr 10 Units/1,000 Ml) 10 unit in 1,000 mls @ 500 mls/hr IV .CONTINUOUS MORGAN Last Admin: 08/07/19 10:37 Dose: 500 mls/hr Nalbuphine HCl (Nubain) 10 mg IVPUSH Q2H PRN PRN Reason: Pain Ondansetron HCl (Zofran) 4 mg IVPUSH Q4H PRN PRN Reason: Nausea/Vomiting Sodium Chloride (Saline Flush) 10 ml FLUSH ASDIRECTED PRN PRN Reason: Keep Vein Open
[2019-08-08] MEDS ORDERED: Prenatal Multivitamin with Calcium/Folic Acid/Iron Tab PO SCH (09:00)
[2019-08-08 09:42] VITALS: BP 103/64; PULSE 72
== END 2019-08-08 13:35 | disposition home or self-care (01) | DRG 560 ==
LOC: JD.OB 07:05 → OBSVTOIN 10:37 → JD.OB 10:49
PROVIDERS: ADMIT Obstetrics & Gynecology; ATTEND Obstetrics & Gynecology
PROC: 10E0XZZ Delivery of Products of Conception, External Approach (ICD-10-PCS; principal; 2019-08-07)
PROC: 10907ZC Drainage of Amniotic Fluid, Therapeutic from Products of Conception, Via Natural or Artificial Opening (ICD-10-PCS; 2019-08-07)
DX: O80 Encounter for full-term uncomplicated delivery (principal); Z90.49 Acquired absence of other specified parts of digestive tract; Z87.891 Personal history of nicotine dependence; Z37.0 Single live birth; Z3A.39 39 weeks gestation of pregnancy
CPT/HCPCS: 01967; 36415; 59025; 59409; 85027; 86592; A9270-GY; J2590; J3010; J3490; J7120